=== PATIENT | male | born 1950 | race Caucasian/White ===

== ENCOUNTER → 2017-07-07 | Outpatient (CLI) | payer MEDICARE ==
[~2017-07-07] MED LIST: HYDR-3583 PO; PRAV40TA2 PO; VALS1TAB63 PO
[2017-07-07 10:41] LABS: AUTOMATED NEUTROPHIL # 3.5 TH/MM3 (1.8-7.7); BASOPHIL % 0.6 % (0.0-2.0); EOSINOPHIL # 0.4 TH/MM3 (0-0.4); EOSINOPHIL % 6.3 % (0.0-4.0); HEMATOCRIT 42.9 % (39.0-51.0); HEMOGLOBIN 14.8 GM/DL (13.0-17.0); LYMPH % 29.2 % (9.0-44.0); LYMPHOCYTE # 1.9 TH/MM3 (1.0-4.8); MEAN CELL VOLUME 84.2 FL (80.0-100.0); MEAN CORPUSCULAR HEMOGLOBIN 28.9 PG (27.0-34.0); MEAN CORPUSCULAR HGB CONC 34.4 % (32.0-36.0); MEAN PLATELET VOLUME 7.7 FL (7.0-11.0); MONO % 8.7 % (0.0-8.0); MONOCYTE # 0.6 TH/MM3 (0-0.9); NEUT % 55.2 % (16.0-70.0); PLATELET COUNT 232 TH/MM3 (150-450); RED CELL DISTRIBUTION WIDTH 13.4 % (11.6-17.2); WHITE BLOOD COUNT 6.4 TH/MM3 (4.0-11.0)
[2017-07-07 10:59] LABS: ALBUMIN 4.1 GM/DL (3.4-5.0); ALT (GPT) 23 U/L (12-78); AST (GOT) 11 U/L (15-37); BICARBONATE 28.5 MEQ/L (21.0-32.0); BLOOD UREA NITROGEN 14 MG/DL (7-18); CALCIUM 8.9 MG/DL (8.5-10.1); CHLORIDE 105 MEQ/L (98-107); CREATININE 1.03 MG/DL (0.60-1.30); GLOMERULAR FILTRATION RATE 72 ML/MIN (>89); GLUCOSE,FASTING 112 MG/DL (74-99); SODIUM (NA) 140 MEQ/L (136-145)
[2017-07-07 11:00] LABS: BILIRUBIN, URINE NEG (NEG); BLOOD, URINE NEG (NEG); GLUCOSE,URINE NEG (NEG); HYALINE CAST, URINE 1 /lpf (RARE); KETONE, URINE NEG (NEG); MUCUS URINE FEW /lpf (OCC); NITRITE,URINE NEG (NEG); PH, URINE 5.5 (5.0-8.5); URINE COLOR YELLOW (YELLW/STRAW); URINE LEUKOCYTE ESTERASE NEG (NEG)
[2017-07-07 11:01] LABS: ALKALINE PHOSPHATASE 39 U/L (45-117); TOTAL PROTEIN 7.7 GM/DL (6.4-8.2)
[2017-07-07 11:14] LABS: PROTHROMBIN TIME - PATIENT 9.9 SEC (9.8-11.6)
--- NOTE | 2017-07-07 11:38 | RADRPT ---
EXAM DATE/TIME: 07/07/2017 11:10 [facility] COMPARISON: No previous studies available for comparison. INDICATIONS : Evaluate for pneumonia, pneumothorax or communicable disease. MEDICAL HISTORY : None. SURGICAL HISTORY : None. ENCOUNTER: Initial ACUITY: 1 day PAIN SCORE: 0/10 LOCATION: Bilateral chest FINDINGS: PA and lateral views of the chest demonstrate the lungs to be symmetrically aerated without evidence of mass, infiltrate or effusion. The cardiomediastinal contours are unremarkable. 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 CONCLUSION: No acute cardio pulmonary disease. Jaden Martinez Jr., MD on July 07, 2017 at 11:34 Board Certified Radiologist. This report was verified electronically.
--- NOTE | 2017-07-07 22:48 | EKG ---
Date Performed: 07/07/2017 Time Performed: 09:59:49 PTAGE: 66 years EKG: SINUS BRADYCARDIA POSSIBLE RIGHT VENTRICULAR CONDUCTION DELAY BORDERLINE ECG NO PREVIOUS TRACING DOCTOR: John Pierson Interpretating Date/Time 07/07/2017 22:45:23
== END ==
LOC: CPRE 09:30
PROVIDERS: ATTEND Neurological Surgery
DX: Z01.810 Encounter for preprocedural cardiovascular examination (principal); Z01.811 Encounter for preprocedural respiratory examination; Z01.812 Encounter for preprocedural laboratory examination; Z01.818 Encounter for other preprocedural examination; M51.26 Other intervertebral disc displacement, lumbar region; R94.31 Abnormal electrocardiogram [ECG] [EKG]
CPT/HCPCS: 36415; 71046; 80053; 81001; 85025; 85610; 85730; 87640; 87641; 93005

== ENCOUNTER 2017-07-09 09:28 | Observation (INO) | payer MEDICARE ==
[~2017-07-09] VITALS: Ht 177.8 cm; Wt 103.8 kg
[~2017-07-09 09:28] MED LIST changes: +BUPIVACAINE/EPINEPHRINE 0.5% PF 30 ML VIAL ONE; +GELFOAM SIZE 100 ONE; +GENTAMICIN SULFATE 80 MG/2 ML VIAL ONE; -HYDR-3583 PO; +THROMBIN (TOPICAL) 5,000 UNIT VIAL ONE; +methylPREDNISolone ACETATE 40 MG/ML VIAL ONE
[2017-07-09] MEDS ORDERED: METOPROLOL TARTRATE 25 MG TAB PO PRN (10:00)
[2017-07-09] MEDS ORDERED: LACTATED RINGER'S 1000 ML IV PRN (10:00)
[2017-07-09] MEDS ORDERED: INSULIN HUMAN REGULAR 1,000 UNITS/10 ML VIAL SQ PRN (10:00)
[2017-07-09] MEDS ORDERED: SODIUM CHLORID 0.9% 500 ML IV PRN (10:00)
[2017-07-09] MEDS ORDERED: ceFAZolin 2 GM PREMIX 50 ML IV SCH (11:45)
[2017-07-09] MEDS ORDERED: ePHEDrine/NS 25 MG/5 ML SYRINGE IV ONE (12:00)
[2017-07-09] MEDS ORDERED: LIDOCAINE HCL 1% PF 5 ML SYRINGE OTHER ONE (12:00)
[2017-07-09] MEDS ORDERED: DEXAMETHASONE SOD PHOS 4 MG/ML VIAL IV ONE (12:00)
[2017-07-09] MEDS ORDERED: PROPOFOL 200 MG/20 ML AMP IV ONE (12:00)
[2017-07-09] MEDS ORDERED: NEOSTIGMINE 5 MG/5 ML SYRINGE IV PUSH ONE (12:00)
[2017-07-09] MEDS ORDERED: GLYCOPYRROLATE 1 MG/5 ML SYRINGE IV PUSH ONE (12:00)
[2017-07-09] MEDS ORDERED: ROCURONIUM INJ 50 MG/5 ML SYRINGE IV PUSH ONE (12:00)
[2017-07-09] MEDS ORDERED: ONDANSETRON HCL 4 MG/2 ML VIAL IV ONE (12:00)
[2017-07-09] MEDS ORDERED: ACETAMINOPHEN 1000 MG/100 ML 100 ML IV ONE (13:51)
[2017-07-09] MEDS ORDERED: ARTIFICIAL TEARS OPTH OINT 3.5 APPLIC/3.5 GM TUBO ONE (13:51)
[2017-07-09] MEDS: SODIUM CHLOR 0.9% 1000 ML INJ 1,000 ML IV SCH (14:57)
[2017-07-09] MEDS ORDERED: MENTHOL LOZENGE BUCCAL PRN (15:00)
[2017-07-09] MEDS ORDERED: ONDANSETRON HCL 4 MG/2 ML VIAL IV PUSH PRN (15:00)
[2017-07-09] MEDS ORDERED: CYCLOBENZAPRINE HCL 10 MG TAB PO PRN (15:00)
[2017-07-09] MEDS ORDERED: ACETAMINOPHEN 325 MG TAB PO PRN (15:00)
[2017-07-09] MEDS ORDERED: cloNIDine HCL 0.1 MG TAB PO/NG PRN (15:00)
[2017-07-09] MEDS ORDERED: RESP: ALBUTEROL 2.5 MG/3 ML NEB (PRN) INH (15:00)
[2017-07-09] MEDS ORDERED: MAGNESIUM HYDROXIDE SUSP 30 ML CUP PO PRN (15:00)
[2017-07-09] MEDS ORDERED: MORPHINE SULFATE 4 MG/ML INJ IV PUSH PRN ×2 (15:00)
[2017-07-09] MEDS ORDERED: ACETAMINOPHEN/HYDROcodone 325 MG/10 MG TAB PO PRN ×2 (15:00)
[2017-07-09] MEDS ORDERED: DO NOT ADM ANY ANTICOAGULANT DRUGS PRN (17:08)
--- NOTE | 2017-07-09 17:09 | PD.OP ---
Operative Report Date of Surgery: Jul 09, 2017 Preoperative Diagnosis: Lumbar spinal stenosis Postoperative Diagnosis: Lumbar spinal stenosis Procedure: Redo Left L4-5, Right L5-S1 hemilaminectomy, mesiofacetectomy, foraminotomy, microsurgical resection of the disk Anesthesia: general Surgeon: Zoran George Cow Tester(s): Jennifer Hayes Operation and Findings: INDICATIONS FOR THE SURGICAL PROCEDURE Mr Valencia is a 66 year-old male who presented with intractable back pain and lauren evidence of left L5 and right S1 lower extremity radiculopathy. He failed maximum nonsurgical management including multiple modalities of conservative treatment as well as pain management interventions by an interventional pain specialist. A surgical decompression was indicated as a last resort. The [id number] details of the procedure, indications, alternatives, risks and potential complications were fully discussed with the patient. The patient fully understood. All the questions were answered. No guarantees were given. The patient voiced requesting the procedure and provided informed consents. The patient was offered the alternative of delaying the procedure and continuing with nonsurgical management. DETAILS OF THE SURGICAL PROCEDURE After the induction of general anesthesia, endotracheal intubation was performed. A Peña catheter, bilateral YAMILETH hose and sequential compression devices were placed and kept throughout the procedure. The patient was positioned prone on a Dmitry table over a Andrés frame. All pressure points were carefully padded with eggcrate mattress. The eyes were tapped shut after ointment was applied by the anesthesiologist to prevent corneal abrasion. A Rosalinda hugger was placed over the expossed lower body to maintain control of the core body temperature. The lower lumbar region was prepped and draped in the usual sterile fashion. A spinal needle was placed on the paraspinal muscle and a cross-table lateral x-ray performed with a C-arm. The skin incision was made over the spinous process of L4 and S1 along the midline. Small subcutaneous bleeders were controlled with a bipolar. The subcutaneous tissue and thoracolumbar fascia was opened with the Bovie and the spinous process of L4, L5, and S1 were exposed. Then, using a Robbins elevator and a Bovie a subperiosteal dissection was performed over the spinous process lamina and facet at L4 and L5 on the left side. A microdiscectomy self- retaining retractor was placed and an instrument was placed underneath the lamina of L4, and another cross-table lateral x-ray performed for radiological confirmation of the level. At this point in the procedure the operating microscope was draped in the usual sterile fashion and brought to the field. The rest of the surgical procedure was performed using microsurgical dissection technique with exception of the closure. Once the level was confirmed, a TPS drill brought to the field and a left hemilaminectomy was performed at L4-L5 on the left side in standard fashion using the AM-8 drill bit, exposing the ligamentum flavum. The superior free border of the ligamentum flavum was from the dura with a ligament dissector and the ligamentum flavum was carefully removed with a 3 mm thin footplate Kerrison. The ligament Flavum and facets were significantly hypertrophic resulting on mass effect on the dural sac. Then, the medial aspect of the facet was drilled and undermined and the exiting L5 nerve root was identified and followed towards the foramen. A foraminotomy was performed with a 3 mm Kerrison. Then, the TPS drill was used to undermine the base of the spinous process, in order to carry out the decompression across the midline to the contralateral side. The ligamentum flavum across the midline was dissected from the dura with a ligament dissector and carefully removed with a 3 mm thin footplate Kerrison. An appropriate decompression of the dural sac and nerve root was achieved. Epidural veins located laterally to the dural sac were carefully coagulated with a bipolar and incised with microscissors. Gentle medial retraction of the dural sac allowed inspection of the disc space. The patient had a broad-based disc protusion which combined with the hypertrophic facets and ligamentun flavum was producing significant stenosis with mass effect on the dural sac and nerve root. Microdiscectomy was then deemed necessary. The annulus fibrosus was thoroughly coagulated with the bipolar and incised with a #10 blade. Then, a microdiscectomy was carried out in the standard fashion using straight and up-biting pituitary forceps. A reverse angle curet was used to push the extruded disc fragments into the disc space so they could be removed with pituitary forceps. Special attention was placed on the middle nerve root and axilla of the nerve root where disc fragments were found, which were carefully dissected and pushed into the disc space and removed with the Kerrison. A good decompression was achieved. The disc space was then irrigated with antibiotic solution. Then, a subperiostial dissection was done at L5-S1 and a right hemilaminectomy was performed at L5-S1 in the standard fashion using the AM-8 drill bit, exposing the ligamentum flavum. The superior free border of the ligamentum flavum was from the dura with a ligament dissector and the ligamentum flavum was carefully removed with a 3 mm thin footplate Kerrison. The ligament Flavum and facets were significantly hypertrophic resulting on mass effect on the dural sac. Then, the medial aspect of the facet was drilled and undermined and the exiting S1 nerve root was identified and followed towards the foramen. A foraminotomy was performed with a 3 mm Kerrison. Then, the TPS drill was used to undermine the base of the spinous process, in order to carry out the decompression across the midline to the contralateral side. The ligamentum flavum across the midline was dissected from the dura with a ligament dissector and carefully removed with a 3 mm thin footplate Kerrison. An appropriate decompression of the dural sac and nerve root was achieved. Epidural veins located laterally to the dural sac were carefully coagulated with a bipolar and incised with microscissors. Gentle medial retraction of the dural sac allowed inspection of the disc space. A large disc protusion which combined with the hypertrophic facets and ligamentun flavum was producing significant stenosis with mass effect on the dural sac and S1 nerve root. Microdiscectomy was then deemed necessary. The annulus fibrosus was thoroughly coagulated with the bipolar and incised with a # 10 blade. Then, a microdiscectomy was carried out in the standard fashion using straight and up-biting pituitary forceps. A reverse angle curet was used to push the extruded disc fragments into the disc space so they could be removed with pituitary forceps. Special attention was placed on the middle nerve root and axilla of the nerve root where disc fragments were found, which were carefully dissected and pushed into the disc space and removed with the Kerrison. A good decompression was achieved. The disc space was then irrigated with antibiotic solution. The incision was then thoroughly irrigated with antibiotic solution and hemostasis secured with the bipolar. A Valsalva maneuver failed to show any cerebrospinal fluid leak or bleeding. The incision was irrigated and closed in layers. 0 Vicryl with interrupted sutures was used to close the thoracolumbar fascia and superficial fascia. The subcutaneous tissue was closed with 3-0 Vicryl. The skin was closed with 4-0 running subcuticular Vicryl. Dermabond was applied to the skin. At the end of the procedure, the sponge, needle and instrument counts were all correct. Estimated blood loss was less than 80 cc. No blood transfusion was given. No intraoperative complications occurred. The patient received prophylactic antibiotics. The patient was then extubated and transferred to the recovery room in stable condition. Zoran George MD Jul 09, 2017 17:09
[2017-07-09] MEDS ORDERED: HYDR-3583 PO (17:13)
--- NOTE | 2017-07-09 17:26 | RADRPT ---
EXAM DATE/TIME: 07/09/2017 14:51 [facility] COMPARISON: No previous studies available for comparison. INDICATIONS : Level localization for L4-S1 laminectomy. MEDICAL HISTORY : None. SURGICAL HISTORY : None. ENCOUNTER: Subsequent ACUITY: 1 day PAIN SCORE: Non-responsive. LOCATION: L4-S1 FINDINGS: 4 digital images are submitted for interpretation showing limited lateral views of the lower lumbar s pine. Localization was accomplished at the L4-5 and L5-S1 levels where moderate disc space narrowing and endplate osteophyte formation is present. CONCLUSION: Level localization to L4-5 and L5-S1 Rubio Askew MD on July 09, 2017 at 17:23 Board Certified Radiologist. This report was verified electronically.
[2017-07-09] MEDS ORDERED: MORPHINE SULFATE 4 MG/ML INJ ONE (17:44)
[2017-07-09] MEDS ORDERED: MIDAZOLAM HCL 2 MG/2 ML VIAL ONE (17:45)
[2017-07-09] MEDS ORDERED: *morphine SULFATE 4 MG/ML PERIprocedure ONLY ONE (17:50)
[2017-07-09] MEDS: VANCOMYCIN INJ 1,000 MG in SODIUM CHLOR 0.9% 250 ML INJ 250 ML IV SCH (19:47)
[2017-07-09] MEDS: DOCUSATE SODIUM 100 MG CAP PO SCH (19:53)
[2017-07-09 20:00] VITALS: BP 125/75; PULSE 65; RESP 20; TEMP 97; O2SAT 95
[2017-07-10] VITALS: BP 114/60; PULSE 73; RESP 20; TEMP 97.1; O2SAT 98
[2017-07-10] MEDS: SODIUM CHLOR 0.9% 1000 ML INJ 1,000 ML IV SCH (01:17)
[2017-07-10 04:00] VITALS: BP 108/66; PULSE 85; RESP 20; TEMP 97.7; O2SAT 95
[2017-07-10] MEDS: VANCOMYCIN INJ 1,000 MG in SODIUM CHLOR 0.9% 250 ML INJ 250 ML IV SCH (06:21)
[2017-07-10 07:37] VITALS: BP 118/68; PULSE 81; RESP 19; TEMP 97.6; O2SAT 95
[2017-07-10] MEDS: DOCUSATE SODIUM 100 MG CAP PO SCH (08:42)
[2017-07-10] MEDS ORDERED: PANTOPRAZOLE SOD 40 MG DELAYED RELEASE TAB PO SCH (09:00)
[2017-07-10 09:41] VITALS: RESP 18
--- NOTE | 2017-07-10 09:51 | HHI.DCPOC ---
Discharge Care Plan Diagnosis: (1) S/P lumbar laminectomy Goals to Promote Your Health * To prevent worsening of your condition and complications * To maintain your health at the optimal level Directions to Meet Your Goals Take your medications as prescribed Follow your dietary instruction Follow activity as directed Keep your appointments as scheduled Take your immunizations and boosters as scheduled If your symptoms worsen call your PCP, if no PCP go to Urgent Care Center or Emergency Room Smoking is Dangerous to Your Health. Avoid second hand smoke Call the 24-hour hour crisis hotline for domestic abuse at Lali Meeks Jul 10, 2017 09:51
--- NOTE | 2017-07-10 09:51 | HHI.DS ---
Discharge Summary Admission Date Jul 09, 2017 at 15:00 Discharge Date: Jul 10, 2017 Admitting Diagnosis s/p lumbar laminectomy (1) S/P lumbar laminectomy ICD Code: Z98.890 - Other specified postprocedural states Brief History Mr Rodriguez is a 66 year-old male who presented with intractable back pain and lauren evidence of left L5 and right S1 lower extremity radiculopathy. He failed maximum nonsurgical management including multiple modalities of conservative treatment as well as pain management interventions by an interventional pain specialist. A surgical decompression was indicated as a last resort. Imaging Last Impressions Lumbar Spine X-Ray 07/09/17 0000 Signed Impressions: Service Date/Time: Sunday, July 09, 2017 14:51 - CONCLUSION: Level localization to L4-5 and L5-S1 Rubio Askew MD Hospital Course Mr. Rodriguez underwent a redo Left L4-5, Right L5-S1 hemilaminectomy, mesiofacetectomy, foraminotomy, microsurgical resection of the disk on Jul 09, 2017. He was discharged home in stable conditions. Pt Condition on Discharge: Stable Discharge Disposition: Discharge Home Discharge Instructions DIET: Follow Instructions for: Heart Healthy Diet ACTIVITIES You can perform: Weight Bearing [place] ADDITIONAL Activity Instructio: Avoid strenuous activities, heavy lifting over 5 lbs, overhead activities, repetitive bending, twisting, pushing, pulling or any activities which might result in stress over the spine. Avoid situation that will put at risk for falls. Use assistive device as needed for walking. Wear provided back brace when out of bed. Follow up Referrals: Appointment for Follow Up with Zoran George MD New Medications: Hydrocodone/Acetaminophen (Hydrocodone-Acetamin 10-325 mg) 10 Mg-325 Mg Tablet 1 TAB PO Q4H PRN for PAIN SCALE 1 TO 10, #90 TAB 0 Refills Continued Medications: Pravastatin (Pravastatin) 40 Mg Tab 40 MG PO DAILY for Cholesterol Management, #30 TAB 0 Refills Valsartan (Valsartan) 40 Mg Tab 40 MG PO DAILY, #60 TAB 0 Refills Lali Meeks Jul 10, 2017 09:51
[2017-07-10 10:23] VITALS: BP 110/67
== END 2017-07-10 11:34 | disposition home or self-care (01) ==
LOC: HSDC 09:28 → EDUNIT# 12:00 → HSDI 15:00 → N06A 18:37
PROVIDERS: ADMIT Neurological Surgery; ATTEND Neurological Surgery
DX: M48.061 Spinal stenosis, lumbar region without neurogenic claudication (principal); M25.78 Osteophyte, vertebrae; M54.17 Radiculopathy, lumbosacral region; I25.10 Atherosclerotic heart disease of native coronary artery without angina pectoris; J44.9 Chronic obstructive pulmonary disease, unspecified; Z87.891 Personal history of nicotine dependence
CPT/HCPCS: 00630; 63030; 63035; 72020; 76000; 82948; 94150; 96360; 96361; 97161; G0378; G8987; G8988; J0131; J0690; J1030; J1100; J1580; J2250; J2270; J2405; J2710; J3010; J3370; J7030; J7050; J7120; L0627